=== PATIENT | male | born 1985 | race American Indian/Alaskan Native ===

== ENCOUNTER 2016-10-10 23:58 | Emergency (ER) | payer MEDICARE ==
[2016-10-10 23:58] VITALS: BMI 25.5
[2016-10-11 00:11] VITALS: BP 117/63
--- NOTE | 2016-10-11 01:01 | C.PDOC ---
History Of Present Illness 30 yo male come in for evaluation of sudden onset of N/V/D today around 4PM after eating [employer]. Pt sts, had 2 episodes of non-bloody vomiting and 1-2 episodes of watery diarrhea associated with mild epigastric discomfort . Otherwise, denies fever, chills, drooling, dysphagia, dyspnea, hematemesis, melena, hematoschezia, back pain. Ambulate to Ed for evaluation, not in any apparent distress. Pt accompanied by family member who has same complaints. Time Seen by Provider: 10/11/16 00:14 Chief Complaint (Nursing): Abdominal Pain History Per: Patient Onset/Duration Of Symptoms: Gradual Current Symptoms Are (Timing): Still Present Past Medical History Reviewed: Historical Data, Nursing Documentation, Vital Signs Vital Signs: Last Vital Signs Temp 98.1 F 10/11/16 01:58 Pulse 100 H 10/11/16 01:58 Resp 18 10/11/16 01:58 BP 117/63 10/11/16 00:09 Pulse Ox 96 10/11/16 01:58 - Medical History PMH: No Chronic Diseases Denies: Depression - [facility] Procedures INJECT/INFUSE NEC (07/15/13) Family History: States: No Known Family Hx - Social History Hx Tobacco Use: Yes Hx Alcohol Use: Yes Hx Substance Use: Yes - Immunization History Hx Tetanus Toxoid Vaccination: No Hx Influenza Vaccination: No Hx Pneumococcal Vaccination: No Review Of Systems Except As Marked, All Systems Reviewed And Found Negative. Constitutional: Negative for: Fever, Chills ENT: Negative for: Throat Pain, Throat Swelling Cardiovascular: Negative for: Chest Pain Respiratory: Negative for: Cough, Shortness of Breath, Wheezing Gastrointestinal: Positive for: Nausea, Vomiting, Abdominal Pain, Diarrhea. Negative for: Constipation, Melena, Hematochezia, Hematemesis Genitourinary: Negative for: Dysuria, Frequency, Incontinence Musculoskeletal: Negative for: Neck Pain, Back Pain Skin: Negative for: Rash Neurological: Negative for: Weakness, Numbness, Altered Mental Status, Headache , Dizziness Physical Exam - Physical Exam Appears: Well, Non-toxic, No Acute Distress Skin: Normal Color, Warm, Dry Eye(s): bilateral: PERRL Nose: No Flaring, No Discharge Oral Mucosa: Moist, No Drooling Throat: No Erythema, No Drooling Neck: Supple Cardiovascular: Rhythm Regular Respiratory: No Stridor, No Wheezing Gastrointestinal/Abdominal: Soft, Tenderness (mild epigastric), No Organomegaly , No Distention, No Guarding, No Rebound Back: No CVA Tenderness Extremity: No Pedal Edema Neurological/Psych: Oriented x3, Normal Speech ED Course And Treatment O2 Sat by Pulse Oximetry: 98 Progress Note: On re-evaluation, pt is afebrile, hemodynamiclay stable. Non- toxic. Pt was given PO challenge, tolerate well in ED. PulseOx 96% RA. neck: Supple. ENT: No acute findings. Lungs: CTA B/L, BS equal B/L. Abd: benign, (- ) guaridng, (-) rebound, (-) localized tenderness. back: (-) CVA tenderness. Pt has clinical findings c/w vomiting, diarrhea . Advised on diet restriction. ref. to f/u with PMD in 1-2 dyas for re-eval. return to ED if any worsening or new changes. Disposition Counseled Patient/Family Regarding: Diagnosis, Need For Followup, Rx Given - Disposition Referrals: Clive Lee MD [Staff Provider] - Disposition: HOME/ ROUTINE Disposition Time: 01:00 Condition: STABLE Additional Instructions: DIET RESTRICTION FOR 1-2 DAYS ENCOURAGE FLUIDS TAKE MEDICATION PRESCRIBED NEED FOLLOW UP WITH PMD IN 2-3 DAYS FOR RE-EVALUATION. RETURN TO ED IF ANY WORSENING OR NEW CHANGES. Prescriptions: Famotidine [Pepcid] 20 mg PO BID #10 tab Ondansetron ODT [Zofran ODT] 1 odt PO BID PRN #6 odt PRN Reason: Nausea/Vomiting Instructions: Gastroenteritis (ED) Forms: [employer] (Turkmen) - Clinical Impression Clinical Impression: Vomiting, Diarrhea
[2016-10-11 01:58] VITALS: PULSE 100; RESP 18; TEMP 98.1
[2016-10-11 03:21] VITALS: O2SAT 98
== END 2016-10-11 02:07 | disposition home or self-care (01) ==
LOC: C.ER 23:58
DX: R11.10 Vomiting, unspecified (principal); R19.7 Diarrhea, unspecified